=== PATIENT | female | born 1995 | race Caucasian/White ===

== ENCOUNTER 2017-08-09 20:31 | Inpatient (IN) | payer OTHER ==
--- NOTE | 2017-08-09 22:25 | History and Physical Report ---
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 course has been unremarkable She is GBS neg Past History Past Medical History: no pertinent history Past Surgical History: no surgical history [employer] History: denies: chlamydia, gonorrhea, hepatitis B, hepatitis C, herpes, HIV , syphilis Social history: single, full code. denies: smoking, alcohol abuse, prescription drug abuse, IV drug use - Obstetrical History Expected Date of Delivery: 08/02/17 Actual Gestation: 41 Week(s) 0 Day(s) : 1 Para: 0 Review of Systems Constitutional: no fever, no chills, no lethargy, no chronic headaches Eyes: no diplopia, no blind spots Ears, nose, mouth and throat: no headache Cardiovascular: no chest pain, no orthopnea, no lightheadedness, no shortness of breath, no dyspnea on exertion, no high blood pressure, no decreased exercise tolerance Respiratory: no cough, no cough with sputum, no shortness of breath, no dyspnea on exertion Gastrointestinal: no abdominal pain, no nausea, no vomiting Genitourinary: no vaginal bleeding, no vaginal discharge - Vital Signs Vital signs: Vital Signs Pulse BP 107 H 116/71 08/09/17 22:18 08/09/17 22:18 Temp Pulse Resp BP Pulse Ox 104 H 116/71 99 08/09/17 22:22 08/09/17 22:18 08/09/17 22:22 - Physical Exam Cardiovascular: Regular rate, Normal S1, Normal S2 Lungs: Positive: Clear to auscultation, Normal air movement Abdomen: Positive: normal appearance, soft. Negative: distention, tenderness, guarding, rigidity Genitourinary (Female): Positive: normal external genitalia Uterus: Positive: enlarged (EFW ~ 3700) Adnexa: both: normal Extremities: Positive: normal - Obstetrical FHR: category 1 Cervical Dilatation: 2 (Per clinic notes) Cervical Effacement Percentage: 80 station: -1 Results All other labs normal. Assessment and Plan A: 21-year-old at 41 weeks here for induction of labor -Cat 1 tracing -GBS neg P: -Admit -Routine labs -Start induction with Pitocin - Patient Problems (1) 41 weeks gestation of Current Visit: Yes Status: Acute
[2017-08-09] MEDS ORDERED: ePHEDrine SULFATE IV PRN (22:28)
[2017-08-09] MEDS ORDERED: XYLOCAINE 2% INFILTRATI ONE (22:28)
[2017-08-09] MEDS ORDERED: MINERAL OIL PO PRN (22:28)
[2017-08-09] MEDS ORDERED: BRETHINE SUB-Q PRN (22:28)
[2017-08-09] MEDS ORDERED: SUBLIMAZE IV PRN (22:28)
[2017-08-09] MEDS ORDERED: BRETHINE IVP PRN (22:28)
[2017-08-09] MEDS ORDERED: PITOCin/NS 30 UNIT/500ML 30 UNITS/500 ML BAG IV SCH ×2 (23:00)
[2017-08-09] MEDS ORDERED: PITOCin/NS 20 UNIT/1000ML DRIP 20 UNITS/1,000 ML BAG IV SCH (23:00)
[2017-08-09 23:22] LABS: Hematocrit 35.2 % (30.3-42.9); Hemoglobin 11.2 gm/dl (10.1-14.3); Mean Corpuscular HGB Conc 32 % (30-34); Mean Corpuscular Volume 76 fl (79-97); Platelet Count 229 K/mm3 (140-440); Red Blood Count 4.63 M/mm3 (3.65-5.03)
[2017-08-10 00:14] LABS: Mean Corpuscular Hemoglobin 24 pg (28-32); Red Cell Distribution Width 20.8 % (13.2-15.2)
[2017-08-10] MEDS: LACTATED RINGERS 1,000 ML IV SCH ×3 (00:50→11:21)
--- NOTE | 2017-08-10 09:25 | Progress Note ---
Assessment and Plan A: IUP @ 41w1d Induction of labor; Pitocin 10mu Category 1 tracing Plans unmedicated labor GBS Negative P: Routine antepartum care AROM, lg amt clear fluid Continue pitocin induction May have IV pain med/epidural if desires Subjective - Subjective Date of service: 08/10/17 Principal diagnosis: TIUP, IOL Patient reports: movement normal, contractions, no new complaints, no loss of fluid, no vaginal bleeding Objective - Vital Signs Vital Signs: Vital Signs - 12hr 08/09/17 08/09/17 08/09/17 22:18 22:22 22:27 Temperature Pulse Rate 107 H 104 H 109 H Respiratory Rate Blood Pressure 116/71 Blood Pressure [Left] O2 Sat by Pulse 99 98 Oximetry 08/09/17 08/09/17 08/09/17 22:32 22:33 22:37 Temperature Pulse Rate 98 H 101 H 98 H Respiratory Rate Blood Pressure Blood Pressure [Left] O2 Sat by Pulse 95 94 97 Oximetry 08/09/17 08/09/17 08/09/17 22:42 22:47 22:52 Temperature Pulse Rate 102 H 113 H 111 H Respiratory Rate Blood Pressure Blood Pressure [Left] O2 Sat by Pulse 97 98 95 Oximetry 08/09/17 08/09/17 08/09/17 22:53 23:00 23:05 Temperature Pulse Rate 102 H 92 H 109 H Respiratory Rate Blood Pressure Blood Pressure [Left] O2 Sat by Pulse 94 97 98 Oximetry 08/09/17 08/09/17 08/09/17 23:10 23:15 23:20 Temperature Pulse Rate 105 H 95 H 107 H Respiratory Rate Blood Pressure Blood Pressure [Left] O2 Sat by Pulse 99 98 98 Oximetry 08/09/17 08/09/17 08/09/17 23:25 23:30 23:35 Temperature Pulse Rate 106 H 102 H 107 H Respiratory Rate Blood Pressure Blood Pressure [Left] O2 Sat by Pulse 98 98 98 Oximetry 08/09/17 08/09/17 08/09/17 23:40 23:45 23:50 Temperature 98.5 F Pulse Rate 102 H 117 H 103 H Respiratory 16 Rate Blood Pressure 119/71 Blood Pressure 119/71 [Left] O2 Sat by Pulse 98 97 98 Oximetry 08/09/17 08/10/17 08/10/17 23:55 00:00 00:18 Temperature Pulse Rate 99 H 115 H 102 H Respiratory Rate Blood Pressure Blood Pressure [Left] O2 Sat by Pulse 98 98 96 Oximetry 08/10/17 08/10/17 08/10/17 00:23 00:28 00:31 Temperature Pulse Rate 109 H 104 H 99 H Respiratory Rate Blood Pressure Blood Pressure [Left] O2 Sat by Pulse 97 95 94 Oximetry 08/10/17 08/10/17 08/10/17 00:33 00:38 00:43 Temperature Pulse Rate 109 H 118 H 104 H Respiratory Rate Blood Pressure Blood Pressure [Left] O2 Sat by Pulse 96 98 97 Oximetry 08/10/17 08/10/17 08/10/17 00:48 00:51 00:53 Temperature Pulse Rate 102 H 103 H 99 H Respiratory Rate Blood Pressure Blood Pressure [Left] O2 Sat by Pulse 97 92 98 Oximetry 08/10/17 08/10/17 08/10/17 00:58 01:03 01:11 Temperature Pulse Rate 105 H 103 H 89 Respiratory Rate Blood Pressure Blood Pressure [Left] O2 Sat by Pulse 98 98 97 Oximetry 08/10/17 08/10/17 08/10/17 01:16 01:21 01:26 Temperature Pulse Rate 91 H 92 H 98 H Respiratory Rate Blood Pressure Blood Pressure [Left] O2 Sat by Pulse 96 97 96 Oximetry 08/10/17 08/10/17 08/10/17 01:31 01:36 01:41 Temperature Pulse Rate 114 H 120 H 93 H Respiratory Rate Blood Pressure Blood Pressure [Left] O2 Sat by Pulse 97 96 96 Oximetry 08/10/17 08/10/17 08/10/17 01:49 01:54 01:59 Temperature Pulse Rate 98 H 100 H 85 Respiratory Rate Blood Pressure Blood Pressure [Left] O2 Sat by Pulse 99 97 97 Oximetry 08/10/17 08/10/17 08/10/17 02:04 02:05 02:08 Temperature Pulse Rate 94 H 91 H 101 H Respiratory Rate Blood Pressure 112/75 Blood Pressure [Left] O2 Sat by Pulse 96 83 L Oximetry 08/10/17 08/10/17 08/10/17 02:09 02:14 02:19 Temperature Pulse Rate 101 H 102 H 100 H Respiratory Rate Blood Pressure Blood Pressure [Left] O2 Sat by Pulse 97 97 96 Oximetry 08/10/17 08/10/17 08/10/17 02:24 02:29 02:34 Temperature Pulse Rate 101 H 87 94 H Respiratory Rate Blood Pressure Blood Pressure [Left] O2 Sat by Pulse 96 96 95 Oximetry 08/10/17 08/10/17 08/10/17 02:39 02:43 02:44 Temperature Pulse Rate 100 H 110 H 88 Respiratory Rate Blood Pressure Blood Pressure [Left] O2 Sat by Pulse 98 93 95 Oximetry 08/10/17 08/10/17 08/10/17 02:54 02:59 03:04 Temperature Pulse Rate 114 H 94 H 84 Respiratory Rate Blood Pressure Blood Pressure [Left] O2 Sat by Pulse 96 97 97 Oximetry 08/10/17 08/10/17 08/10/17 03:06 03:09 03:14 Temperature Pulse Rate 87 94 H 92 H Respiratory Rate Blood Pressure 112/73 Blood Pressure [Left] O2 Sat by Pulse 97 97 Oximetry 08/10/17 08/10/17 08/10/17 03:19 03:24 03:29 Temperature Pulse Rate 99 H 89 91 H Respiratory Rate Blood Pressure Blood Pressure [Left] O2 Sat by Pulse 99 98 99 Oximetry 08/10/17 08/10/17 08/10/17 03:38 03:43 03:48 Temperature Pulse Rate 88 93 H 83 Respiratory Rate Blood Pressure Blood Pressure [Left] O2 Sat by Pulse 98 98 98 Oximetry 08/10/17 08/10/17 08/10/17 03:53 03:58 04:03 Temperature 97.9 F Pulse Rate 80 83 90 Respiratory 16 Rate Blood Pressure Blood Pressure 109/67 [Left] O2 Sat by Pulse 98 97 97 Oximetry 08/10/17 08/10/17 08/10/17 04:08 04:13 04:18 Temperature Pulse Rate 98 H 90 85 Respiratory Rate Blood Pressure 109/67 Blood Pressure [Left] O2 Sat by Pulse 97 97 96 Oximetry 08/10/17 08/10/17 08/10/17 04:23 04:28 04:32 Temperature Pulse Rate 84 95 H 96 H Respiratory Rate Blood Pressure Blood Pressure [Left] O2 Sat by Pulse 96 98 90 Oximetry 08/10/17 08/10/17 08/10/17 04:33 04:38 04:40 Temperature Pulse Rate 80 99 H 97 H Respiratory Rate Blood Pressure Blood Pressure [Left] O2 Sat by Pulse 97 97 90 Oximetry 04/08/10/17 08/10/17 04:43 04:48 04:53 Temperature Pulse Rate 90 94 H 96 H Respiratory Rate Blood Pressure Blood Pressure [Left] O2 Sat by Pulse 98 97 98 Oximetry 08/10/17 08/10/17 08/10/17 04:58 05:03 05:05 Temperature Pulse Rate 85 83 86 Respiratory Rate Blood Pressure 118/75 Blood Pressure [Left] O2 Sat by Pulse 97 96 Oximetry 08/10/17 08/10/17 08/10/17 05:08 05:13 05:18 Temperature Pulse Rate 88 91 H 99 H Respiratory Rate Blood Pressure Blood Pressure [Left] O2 Sat by Pulse 98 98 96 Oximetry 08/10/17 08/10/17 08/10/17 05:23 05:28 05:33 Temperature Pulse Rate 92 H 106 H 83 Respiratory Rate Blood Pressure Blood Pressure [Left] O2 Sat by Pulse 97 95 97 Oximetry 08/10/17 08/10/17 08/10/17 05:38 05:43 05:49 Temperature Pulse Rate 90 97 H 92 H Respiratory Rate Blood Pressure Blood Pressure [Left] O2 Sat by Pulse 96 98 98 Oximetry 08/10/17 08/10/17 08/10/17 05:54 05:59 06:04 Temperature Pulse Rate 85 97 H 87 Respiratory Rate Blood Pressure 111/68 Blood Pressure [Left] O2 Sat by Pulse 98 96 96 Oximetry 08/10/17 08/10/17 08/10/17 06:09 06:14 06:19 Temperature Pulse Rate 79 80 79 Respiratory Rate Blood Pressure Blood Pressure [Left] O2 Sat by Pulse 96 96 96 Oximetry 08/10/17 08/10/17 08/10/17 06:24 06:29 06:34 Temperature Pulse Rate 78 79 84 Respiratory Rate Blood Pressure Blood Pressure [Left] O2 Sat by Pulse 96 96 96 Oximetry 08/10/17 08/10/17 08/10/17 06:39 06:44 06:49 Temperature Pulse Rate 88 89 97 H Respiratory Rate Blood Pressure Blood Pressure [Left] O2 Sat by Pulse 97 97 97 Oximetry 08/10/17 08/10/17 08/10/17 06:54 06:59 07:04 Temperature Pulse Rate 91 H 74 78 Respiratory Rate Blood Pressure Blood Pressure [Left] O2 Sat by Pulse 97 96 97 Oximetry 08/10/17 08/10/17 08/10/17 07:05 07:09 07:14 Temperature Pulse Rate 92 H 115 H 87 Respiratory Rate Blood Pressure 120/73 Blood Pressure [Left] O2 Sat by Pulse 97 97 Oximetry 08/10/17 08/10/17 08/10/17 07:19 07:24 07:29 Temperature Pulse Rate 93 H 85 90 Respiratory Rate Blood Pressure Blood Pressure [Left] O2 Sat by Pulse 96 96 97 Oximetry 08/10/17 08/10/17 08/10/17 07:34 07:39 07:44 Temperature Pulse Rate 76 83 87 Respiratory Rate Blood Pressure Blood Pressure [Left] O2 Sat by Pulse 97 96 97 Oximetry 08/10/17 08/10/17 08/10/17 07:55 08:00 08:02 Temperature Pulse Rate 91 H 94 H 93 H Respiratory Rate Blood Pressure Blood Pressure [Left] O2 Sat by Pulse 98 95 94 Oximetry 08/10/17 08/10/17 08/10/17 08:05 08:08 08:10 Temperature Pulse Rate 94 H 81 79 Respiratory Rate Blood Pressure Blood Pressure [Left] O2 Sat by Pulse 95 94 96 Oximetry 08/10/17 08/10/17 08/10/17 08:14 08:15 08:20 Temperature Pulse Rate 85 95 H 86 Respiratory Rate Blood Pressure Blood Pressure [Left] O2 Sat by Pulse 94 96 95 Oximetry 08/10/17 08/10/17 08/10/17 08:25 08:27 08:30 Temperature Pulse Rate 104 H 76 104 H Respiratory Rate Blood Pressure 127/72 Blood Pressure [Left] O2 Sat by Pulse 95 98 Oximetry 08/10/17 08/10/17 08/10/17 08:35 08:40 08:45 Temperature Pulse Rate 99 H 109 H 92 H Respiratory Rate Blood Pressure Blood Pressure [Left] O2 Sat by Pulse 98 98 96 Oximetry 08/10/17 08/10/17 08/10/17 08:50 08:54 08:55 Temperature Pulse Rate 98 H 86 103 H Respiratory Rate Blood Pressure Blood Pressure [Left] O2 Sat by Pulse 97 93 96 Oximetry 08/10/17 08/10/17 08/10/17 09:00 09:05 09:06 Temperature Pulse Rate 100 H 102 H 100 H Respiratory Rate Blood Pressure 132/95 Blood Pressure [Left] O2 Sat by Pulse 99 96 Oximetry 04/08/10/17 08/10/17 09:11 09:15 09:20 Temperature Pulse Rate 100 H 109 H 102 H Respiratory Rate Blood Pressure Blood Pressure [Left] O2 Sat by Pulse 98 98 98 Oximetry 08/10/17 09:25 Temperature Pulse Rate 97 H Respiratory Rate Blood Pressure Blood Pressure [Left] O2 Sat by Pulse 99 Oximetry - Exam Cardiovascular: Regular rate, Normal S1, Normal S2 Lungs: Normal air movement Abdomen: Present: normal appearance, soft Vulva: both: normal Uterus: Present: other (Gravid) FHR: auscultation normal, category 1 FHR comments: Category 1, BL 120, accelerations present. No decels Uterine Contraction Monitor Mode: External Cervical Dilatation: 2 (AROM, Large amt clear fluid) Cervical Effacement Percentage: 70 station: 0 Uterine Contraction Frequency (min): 2-6 Uterine Contraction Pattern: Irregular Uterine Tone Measurement Phase: Resting Uterine Contraction Intensity: Mild (Pt not aware of contractions prior to AROM) Extremities: normal Deep Tendon Reflex Grade: Normal +2 - Labs Labs: Abnormal Labs 08/09/17 22:42 MCV 76 L MCH 24 L RDW 20.8 H Laboratory Results - last 24 hr 08/09/17 08/09/17 22:42 22:45 WBC 5.4 RBC 4.63 Hgb 11.2 Hct 35.2 MCV 76 L MCH 24 L MCHC 32 RDW 20.8 H Plt Count 229 Blood Type A POSITIVE Antibody Screen Negative
[2017-08-10] MEDS ORDERED: XYLOCAINE 2% INFILTRATI ONE (15:52)
--- NOTE | 2017-08-10 16:20 | Procedure Note ---
OB Delivery Note - Delivery Date of Delivery: 08/10/17 (15:40) Surgeon: SARAN FARMER (DANIAL) Estimated blood loss: 300cc - Vaginal Delivery presentation: vertex, compound (left arm compound presention) Delivery position: OA Intrapartum events: none Delivery induction: oxytocin Delivery augmentation: rupture of membranes Delivery monitor: external FHT, external uterine Route of delivery: (15:40) Delivery placenta: spontaneous (Mohr) Delivery cord: 3 umbilical vessels Episiotomy: none Delivery laceration: other (periurethral) Delivery repair: vicryl (2-0 SH) Anesthesia: local Delivery comments: viable female , CONSTANCE,compound presentation (left arm), over intact perineum at 15:40. Infant to mothers abdomen for [id number]. Delayed cord clamping. Cord then cut by FOB. Spontaneous mohr delivery of intact placenta at 15:46. 3VC. left periurethral laceration repaired under local anesthesia with 2-0 vicyrl, SH. pt tolerated well. EBL 300. and mother left in stable condition in L&D. - Infant A at 1 minute: 8 at 5 minutes: 9 Infant Gender: Female (3609 grams, 7lbs 15oz, 20")
[2017-08-10] MEDS ORDERED: NORCO 5/325 PO PRN (17:47)
[2017-08-10] MEDS ORDERED: LANSINOH TP PRN (17:47)
[2017-08-10] MEDS ORDERED: SODIUM CHLORIDE FLUSH SYRINGE 10 ML IV SCH (17:47)
[2017-08-10] MEDS ORDERED: ZOFRAN IV PRN (17:47)
[2017-08-10] MEDS ORDERED: MILK OF MAGNESIA PO PRN (17:47)
[2017-08-10] MEDS ORDERED: TYLENOL PO PRN (17:47)
[2017-08-10] MEDS ORDERED: PHENERGAN PO PRN (17:47)
[2017-08-10] MEDS ORDERED: TUCKS PAD TP PRN (17:47)
[2017-08-10] MEDS ORDERED: DULCOLAX PR PRN (17:47)
[2017-08-10] MEDS ORDERED: BENADRYL PO PRN (17:47)
[2017-08-10] MEDS: MOTRIN PO SCH (18:09)
[2017-08-11] MEDS: MOTRIN PO SCH ×5 (00:05→23:47)
[2017-08-11 06:08] LABS: Hematocrit 29.1 % (30.3-42.9); Hemoglobin 9.4 gm/dl (10.1-14.3)
--- NOTE | 2017-08-11 16:18 | Progress Note ---
Assessment and Plan A: PPD#1 s/p breast/bottle feeding Stable P: Routine care Discharge home in am Subjective - Subjective Date of service: 08/11/17 Principal diagnosis: Patient reports: appetite normal, voiding normally, pain well controlled, flatus , ambulating normally, no bowel movement : doing well, other (Breast/bottle) Objective - Vital Signs Latest vital signs: Vital Signs Temp Pulse Resp BP BP Pulse Ox 08/11/17 08:25 97.8 F 99 H 18 93/55 98 08/11/17 00:29 98.4 F 93 H 18 100/58 08/10/17 20:50 98.2 F 102 H 18 107/64 08/10/17 18:09 20 08/10/17 16:46 95 H 107/67 08/10/17 16:31 110 H 115/67 Intake and Output 08/11/17 08/11/17 08/11/17 07:59 15:59 23:59 Intake Total 600 Balance 600 Intake: Intake, Free Water 600 Other: # Voids Void 1 - Exam Breasts: Present: normal, Cardiovascular: Present: Regular rate, Normal S1, Normal S2 Lungs: Present: Clear to auscultation, Normal air movement Abdomen: Present: normal appearance, soft, normal bowel sounds Vulva: both: normal, laceration/episiotomy (left periurethrial, well approximated) Uterus: Present: firm, fundal height below umbilicus (-1) Extremities: Present: normal Deep Tendon Reflex Grade: Normal +2 - Labs Labs: Abnormal lab results 08/11/17 Range/Units 05:51 Hgb 9.4 L (10.1-14.3) gm/dl Hct 29.1 L D (30.3-42.9) %
--- NOTE | 2017-08-11 16:19 | Discharge Summary ---
Providers - Providers Date of Admission: 08/09/17 20:31 Date of discharge: 08/12/17 Attending physician: JOANNE FORBES MD Primary care physician: JOANNE FORBES MD Hospitalization Reason for admission: induction of labor, IUP at term Delivery: Procedure details: See H&P and delivery note Episiotomy: none Laceration: other (left periurethrial, well approximated) complications: none Discharge diagnosis: IUP at term delivered baby: female Condition at discharge: Good Disposition: DC-01 TO HOME OR SELFCARE Plan - Provider Discharge Summary Activity: routine, no sex for 6 weeks, no heavy lifting 4 weeks, no strenuous exercise Diet: routine Instructions: routine Additional instructions: [] Smoking cessation referral if applicable(refer to patient education folder for contact #) [] Refer to [facility] Booklet Call your doctor immediately for: * Fever > 100.5 * Heavy vaginal bleeding ( >1 pad per hour) * Severe persistent headache * Shortness of breath * Reddened, hot, painful area to leg or breast * Drainage or odor from incision. * Keep incision clean and dry at all times and follow doctor's instructions regarding bathing/showering - Follow up plan Follow up: JOANNE FORBES MD [Primary Care Provider] - 6 Weeks
[2017-08-12] MEDS: MOTRIN PO SCH ×2 (05:35→12:10)
[2017-08-12 08:50] VITALS: BP 98/68
== END 2017-08-12 15:30 | disposition home or self-care (01) | DRG 775 ==
LOC: APU 20:31 → LD 21:03 → OB 08-10 17:25
PROVIDERS: ADMIT Obstetrics & Gynecology; ATTEND Obstetrics & Gynecology
PROC: 10E0XZZ Delivery of Products of Conception, External Approach (ICD-10-PCS; principal; 2017-08-10)
PROC: 3E033VJ Introduction of Other Hormone into Peripheral Vein, Percutaneous Approach (ICD-10-PCS; 2017-08-10)
PROC: 10907ZC Drainage of Amniotic Fluid, Therapeutic from Products of Conception, Via Natural or Artificial Opening (ICD-10-PCS; 2017-08-10)
PROC: 0UQMXZZ Repair Vulva, External Approach (ICD-10-PCS; 2017-08-10)
DX: O71.82 Other specified trauma to perineum and vulva (principal); Z37.0 Single live birth; Z3A.40 40 weeks gestation of pregnancy
CPT/HCPCS: 36415; 85014; 85018; 85027; 86592; 86850; 86900; 86901; J2590; J7120

== ENCOUNTER 2021-05-20 17:08 | Emergency (ER) | payer SELFPAY ==
[2021-05-20 21:09] LABS: Basophils # (Auto) 0.1 K/mm3 (0.0-0.1); Basophils % (Auto) 0.8 % (0.0-1.8); Eosinophils # (Auto) 0.1 K/mm3 (0.0-0.4); Eosinophils % (Auto) 0.8 % (0.0-4.3); Lymphocytes # (Auto) 3.2 K/mm3 (1.2-5.4); Lymphocytes % (Auto) 46.5 % (13.4-35.0); Mean Corpuscular HGB Conc 28 % (30-34); Monocytes # (Auto) 0.4 K/mm3 (0.0-0.8); Monocytes % (Auto) 6.4 % (0.0-7.3); Platelet Count 423 K/mm3 (140-440); Red Cell Distribution Width 19.5 % (13.2-15.2)
[2021-05-20 21:23] LABS: Hemoglobin 6.9 gm/dl (10.1-14.3); Mean Corpuscular Volume 54 fl (79-97)
[2021-05-20 21:35] LABS: Alanine Aminotransferase 15 units/L (7-56); Albumin 4.7 g/dL (3.9-5); Blood Urea Nitrogen 9 mg/dL (7-17); Calcium 9.2 mg/dL (8.4-10.2); Hemolysis Index 0
[2021-05-20 21:37] LABS: BUN/Creatinine Ratio 18
[2021-05-20] MEDS ORDERED: SODIUM CHLORIDE 0.9% 500 ML 500 ML IV ONE (21:50)
[2021-05-20] MEDS ORDERED: SODIUM CHLORIDE 0.9% 500 ML 500 ML ONE (23:52)
--- NOTE | 2021-05-21 04:26 | Emergency Department Report ---
ED General Adult HPI - General Chief complaint: Weakness Stated complaint: ANEMIA Source: patient Mode of arrival: Ambulatory Limitations: No Limitations - History of Present Illness Initial comments: Patient is a 25-year-old female with past medical history of chronic i palmer deficiency anemia who presents to the ED with complaint of acute onset persistent intermittent generalized weakness and fatigue for the last 3 months worse in the last 2 weeks. Patient states that she was initially evaluated by her primary care physician 3 days ago and had basic labs drawn. Patient states that the lab test results were abnormal and hemoglobin was 6.8 and hematocrit was 25 with MCV of 59. Patient states that she was advised to come to the ED for evaluation by her primary care physician. Patient states that she was given a prescription by her primary care physician of iron tablets to take as a supplement for her chronic iron deficiency anemia. Patient denies dizziness, syncope, chest pain, shortness of breath, heavy vaginal bleeding, hematochezia, hematemesis, hemoptysis, fever, chills, cough, sore throat, nasal and sinus congestion, dysuria, urinary frequency and urgency, abdominal pain, nausea, vomiting and diarrhea or palpitations. MD Complaint: Generalized weakness; chronic anemia -: Gradual, month(s) (3) Location: head Radiation: non-radiation Severity scale (0 -10): 0 Consistency: intermittent Improves with: rest Worsens with: movement, other (physical activities) Associated Symptoms: denies other symptoms, malaise, weakness. denies: confusion, chest pain, cough, diaphoresis, fever/chills, headaches, loss of appetite, nausea/vomiting, rash, seizure, shortness of breath, syncope Treatments Prior to Arrival: none - Related Data Home Medications Medication Instructions Recorded Confirmed Last Taken Vitamin Tablet 1 tab PO QDAY 08/10/17 08/10/17 08/09/17 08:00 Previous Rx's Medication Instructions Recorded Last Taken Type Cyanocobalamin/Folic Acid [Vitamin 1 each PO DAILY #30 05/21/21 Unknown Rx [id number] Acid Tablet] Ondansetron [Zofran Odt] 4 mg PO Q6HR PRN #20 tab.rapdis 05/21/21 Unknown Rx Allergies Allergy/AdvReac Type Severity Reaction Status Date / Time No Known Allergies Allergy Verified 08/10/17 00:27 ED Review of Systems ROS: Stated complaint: ANEMIA Other details as noted in HPI Constitutional: malaise, weakness, other (Generalized fatigue). denies: chills, fever Eyes: denies: eye pain, eye discharge, vision change ENT: denies: ear pain, throat pain Respiratory: denies: cough, shortness of breath, SOB with exertion, SOB at rest, wheezing Cardiovascular: denies: chest pain, palpitations Endocrine: no symptoms reported Gastrointestinal: denies: abdominal pain, nausea, vomiting, diarrhea Genitourinary: denies: urgency, dysuria, discharge Musculoskeletal: denies: back pain, joint swelling, arthralgia Skin: denies: rash, lesions, change in color, change in hair/nails Neurological: denies: headache, weakness, paresthesias Psychiatric: denies: anxiety, depression Hematological/Lymphatic: denies: easy bleeding, easy bruising ED Past Medical Hx - Past Medical History Previous Medical History?: No Hx Hypertension: No Hx Congestive Heart Failure: No Hx Diabetes: No Hx Deep Vein Thrombosis: No Hx Renal Disease: No Hx Sickle Cell Disease: No Hx Seizures: No Hx Asthma: No Hx COPD: No Hx HIV: No - Surgical History Past Surgical History?: No - Social History Smoking Status: Never Smoker - Medications Home Medications: Home Medications Medication Instructions Recorded Confirmed Last Taken Type Vitamin Tablet 1 tab PO QDAY 08/10/17 08/10/17 08/09/17 08:00 History Cyanocobalamin/Folic Acid [Vitamin 1 each PO DAILY #30 05/21/21 Unknown Rx [id number] Acid Tablet] Ondansetron [Zofran Odt] 4 mg PO Q6HR PRN #20 tab.rapdis 05/21/21 Unknown Rx ED Physical Exam - General Limitations: No Limitations General appearance: alert, in no apparent distress - Head Head exam: Present: atraumatic, normocephalic, normal inspection - Eye Eye exam: Present: normal appearance, PERRL, EOMI Pupils: Present: normal accommodation - ENT ENT exam: Present: normal exam, normal orophraynx, mucous membranes moist, TM's normal bilaterally, normal external ear exam - Neck Neck exam: Present: normal inspection, full ROM - Respiratory Respiratory exam: Present: normal lung sounds bilaterally. Absent: respiratory distress, wheezes, rales, rhonchi, stridor, chest wall tenderness, accessory muscle use, decreased breath sounds, prolonged expiratory - Cardiovascular Cardiovascular Exam: Present: normal rhythm, tachycardia, normal heart sounds. Absent: systolic murmur, diastolic murmur, rubs, gallop - GI/Abdominal GI/Abdominal exam: Present: soft, normal bowel sounds. Absent: tenderness, guarding, rebound, hyperactive bowel sounds, hypoactive bowel sounds, organomegaly - Bi-manual exam: Present: other (Pelvic exam deferred at this) - Extremities Exam Extremities exam: Present: normal inspection, full ROM, normal capillary refill - Back Exam Back exam: Present: normal inspection, full ROM. Absent: tenderness, CVA tenderness (R), CVA tenderness (L), muscle spasm, paraspinal tenderness, vertebral tenderness - Neurological Exam Neurological exam: Present: alert, oriented X3, CN II-XII intact, normal gait, reflexes normal - Psychiatric Psychiatric exam: Present: normal affect, normal mood, anxious - Skin Skin exam: Present: warm, dry, intact, normal color. Absent: rash ED Course Vital Signs 05/20/21 05/20/21 05/20/21 20:31 22:16 22:20 Temperature 98.5 F Pulse Rate 106 H 96 H Respiratory 18 12 17 Rate Blood Pressure 119/58 104/71 O2 Sat by Pulse 100 100 100 Oximetry 05/20/21 05/20/21 05/20/21 22:30 22:46 23:00 Temperature Pulse Rate 104 H 96 H 95 H Respiratory 21 16 17 Rate Blood Pressure 107/66 107/57 103/63 O2 Sat by Pulse 100 100 100 Oximetry 05/20/21 05/20/21 05/20/21 23:16 23:18 23:30 Temperature Pulse Rate 88 89 104 H Respiratory 17 15 16 Rate Blood Pressure 98/56 98/56 98/61 O2 Sat by Pulse 100 100 100 Oximetry 05/20/21 05/21/21 05/21/21 23:46 00:00 00:05 Temperature 98.2 F Pulse Rate 90 83 87 Respiratory 17 16 16 Rate Blood Pressure 100/62 97/63 98/67 O2 Sat by Pulse 100 99 100 Oximetry 05/21/21 05/21/21 05/21/21 00:16 00:20 00:30 Temperature Pulse Rate 81 81 84 Respiratory 15 19 19 Rate Blood Pressure 97/60 97/60 96/59 O2 Sat by Pulse 100 99 99 Oximetry 05/21/21 05/21/21 05/21/21 00:46 00:50 01:00 Temperature Pulse Rate 86 86 79 Respiratory 20 20 17 Rate Blood Pressure 103/62 103/62 93/57 O2 Sat by Pulse 100 100 99 Oximetry 05/21/21 05/21/21 05/21/21 01:16 01:20 01:30 Temperature Pulse Rate 85 85 76 Respiratory 17 17 14 Rate Blood Pressure 100/59 100/59 98/59 O2 Sat by Pulse 100 100 100 Oximetry 05/21/21 05/21/21 05/21/21 01:46 01:50 02:00 Temperature Pulse Rate 82 82 79 Respiratory 17 17 17 Rate Blood Pressure 99/65 99/65 98/59 O2 Sat by Pulse 99 100 100 Oximetry 05/21/21 05/21/21 05/21/21 02:15 02:16 02:30 Temperature 98.7 F Pulse Rate 76 76 82 Respiratory 16 16 18 Rate Blood Pressure 99/56 99/56 97/51 O2 Sat by Pulse 98 98 98 Oximetry 05/21/21 02:46 Temperature Pulse Rate 84 Respiratory 16 Rate Blood Pressure 98/53 O2 Sat by Pulse 99 Oximetry ED Medical Decision Making - Lab Data Result diagrams: 05/20/21 20:54 05/20/21 20:54 - Differential Diagnosis Anemia; dehydration; viral syndrome; URI; Critical care attestation.: If time is entered above; I have spent that time in minutes in the direct care of this critically ill patient, excluding procedure time. ED Disposition Clinical Impression: Hypochromic-microcytic anemia, Generalized weakness Disposition: HOME / SELF CARE / HOMELESS Is pt being admited?: No Does the pt Need Aspirin: No Condition: Stable Instructions: Iron Level and Total Iron-Binding Capacity Tests, Preventing Iron Deficiency Anemia, Adult, Weakness, [id number] Additional Instructions: Todos los resultados de las pruebas de laboratorio se revisaron y mostraron anemia crnica por deficiencia de nya, por lo que usted recibi victoriano transfus in de darren en el servicio de urgencias. Por lo tanto, tome las tabletas de suplementos de nya que le recetaron previamente adems de la vitamina B-12 con tabletas de cido flico segn lo recomendado, tome el medicamento para las nuseas, Zofran segn sea necesario para las nuseas. Wanda muchos lquidos y ministerio un seguimiento con ureña mdico obstetra/gineclogo o mdico de atencin primaria en 7 a 10 brennan para victoriano reevaluacin. Regrese al servicio de urgencias de inmediato si mamadou sntomas empeoran. Prescriptions: Cyanocobalamin/Folic Acid [Vitamin O32-Lkgso Acid Tablet] 1 each PO DAILY #30 Ondansetron [Zofran Odt] 4 mg PO Q6HR PRN #20 tab.rapdis PRN Reason: Nausea Referrals: KALINA ABREU MD [Primary Care Provider] - 3-5 Days Time of Disposition: 04:30 Print Language: MARTINIQUAIS
[2021-05-21 06:07] VITALS: BP 95/53
== END 2021-05-21 05:15 | disposition home or self-care (01) ==
LOC: ED 17:08
DX: D50.9 Iron deficiency anemia, unspecified (principal); R53.1 Weakness
CPT/HCPCS: 36415; 36430; 80053; 85025; 86850; 86900; 86901; 86920; 96360; 96361; 99283; J7040; P9016